=== PATIENT | female | born 1990 | race Caucasian/White ===

== ENCOUNTER → 2021-04-23 10:44 | Outpatient (CLI) | payer OTHER, SELFPAY ==
[2021-04-23 21:06] LABS: SARS-CoV-2 RNA PCR Positive
== END ==
PROVIDERS: PCP Family Medicine; Visit Provider Nurse Practitioner Gerontology
DX: U07.1 COVID-19 (principal)
CPT/HCPCS: C9803; U0003; U0005

== ENCOUNTER 2021-05-15 11:15 | Emergency (ER) | payer OTHER, SELFPAY ==
--- NOTE | 2021-05-15 11:25 | ED.EAR ---
HPI - Ear Problem General Chief complaint: Ear Stated complaint: EARACHE Time Seen by Provider: 05/15/21 11:27 Source: patient, RN notes reviewed and old records reviewed Mode of arrival: ambulatory Limitations: no limitations History of Present Illness HPI Narrative: 30-year-old female who presents to [facility] for rehabilitation care with complaints of bilateral ear pain with right ear of greater intensity. Patient had COVID around [place] with her symptoms of nasal congestion and drainage and ear discomfort lingering from that time. Patient denies any drainage from her ears denies any decreased hearing or any fevers, has crackling sensation in her ears. Patient has been taking Tylenol has not taken any kind of Zyrtec Claritin or Penelope or any type of decongestants. Patient reports some feelings of dizziness noted with position changes. MD Complaint: ear pain Location: bilateral Duration: constant Severity: moderate Relieving factors: nothing Related Data Allergies Allergy/AdvReac Type Severity Reaction Status Date / Time sulfamethizole Allergy Mild shakiness Verified 05/15/21 11:22 and high blood pressure trimethoprim Allergy Mild unknown Verified 05/15/21 11:22 sulfamethoxazole AdvReac Intermediate shakey, Verified 05/15/21 11:22 elevated pulse, high blood pressure Review of Systems Review of Systems: CONSTITUTIONAL: Denies fever, chills, or sweats. EYES: Denies visual changes, redness, or discharge. ENT: Positive for rhinorrhea, congestion, sore throat,bilateral otalgia. CARDIOVASCULAR: Denies chest pain, palpitations, or edema. RESPIRATORY: Denies cough or dyspnea. GASTROINTESTINAL: Denies abdominal pain, nausea, vomiting, or diarrhea. GENITOURINARY: Denies dysuria or hematuria. SKIN: Denies rash or itching. MUSCULOSKELETAL: Denies back pain, joint pain, or myalgia. NEUROLOGIC: Denies headache, numbness, or weakness, intermittent dizziness stated PSYCHIATRIC: Positive for history of anxiety or depression. All systems reviewed & are unremarkable except as noted in HPI and below PMFSH Past Medical History Medical History (Updated 05/15/21 @ 11:51 by Haley Rivera NP) Generalized anxiety disorder Surgical History Surgical History (Updated 05/15/21 @ 11:52 by Haley Rivera NP) History of placement of ear tubes Previous section Family History Family History Mother Hypertension Family history of elevated blood lipids Father Family history of elevated blood lipids Grandparent Cerebrovascular accident Family history of lung cancer Social History Social History Social History: Smoking status: Never smoker Second hand tobacco smoke exposure: No Alcohol intake: current Drinks per week: 2 Substance use: never Substance use type: does not use Gender identity (if verbalized by the patient): Female Sexual Orientation (if Verbalized by the Patient): Straight or Heterosexual Comments At time of signature, agree with nursing past medical, surgical, social and family history. There is no relevant family history pertinent to the presenting complaint Exam Narrative: GENERAL: Well-appearing, well-nourished, and in no acute distress. HEAD: Normocephalic, atraumatic. EYES: PERRLA and EOMI. ENT: Nares red with some redness of membranes, clear rhinorrhea no epistaxis. Mucous membranes moist.TM's normal with dull light reflex, throat red with no lesions or exudates or tonsil enlargement. post nasal darainage noted to back of throat. NECK: Supple.no lymphadenopathy CHEST: Clear to auscultation. No respiratory distress. SAO2 100% on room air HEART: Regular rate and rhythm. No murmur heard. Normal peripheral pulses. ABDOMEN: Soft, nontender, nondistended, normal active bowel sounds. EXTREMITIES: Normal range of motion. No edema. SKIN
[2021-05-15 11:26] VITALS: BP 128/69; PULSE 94; RESP 16; TEMP 36.5; O2SAT 100
== END 2021-05-15 11:47 | disposition home or self-care (01) ==
PROVIDERS: Emergency Provider Registered Nurse; PCP Family Medicine
DX: H69.93 Unspecified Eustachian tube disorder, bilateral (principal); J06.9 Acute upper respiratory infection, unspecified; F41.1 Generalized anxiety disorder; Z86.16 Personal history of COVID-19
CPT/HCPCS: 99213; G0463

== ENCOUNTER 2022-05-21 11:22 | Emergency (ER) | payer OTHER, SELFPAY ==
[2022-05-21] VITALS (16 sets, daily range): BP systolic 105–121; BP diastolic 75–92; PULSE 71–114; RESP 15–23; TEMP 36.5; O2SAT 92–100
--- NOTE | ~2022-05-21 | XR_ITS ---
Clinical Indication: Chest pain PA and lateral views of the chest: Comparison: None Findings: The lungs are clear, without evidence of focal consolidation or pleural effusion. Cardiome diastinal silhouette is within normal limits. Bones and soft tissues are unremarkable. Impression: Normal chest. Reviewed, dictated and finalized at location . [employer] Impression: Normal chest.
--- NOTE | ~2022-05-21 | CT_ITS ---
EXAMINATION: CTA chest PE protocol DATE: 05/21/2022 13:52 INDICATION: Chest pain and dyspnea TECHNIQUE: Computed tomography (CT) pulmonary angiogram of the chest was performed with 100 mL Omnipa que-350 intravenous contrast. Additional 3D reconstructions utilizing coronal maximum intensity proje ction (MIP) were performed. Automated exposure control and iterative reconstruction technique were em ployed. The dose-length product was 291.55 mGy-cm. COMPARISON: None FINDINGS: Excellent contrast opacification of the pulmonary arteries. There is mild streak artifact from dense contrast in the superior vena cava and right atrium. No significant motion artifact yielding diagnost ic quality study which demonstrates no pulmonary embolism. No pneumonia, pulmonary edema or other pul monary infiltrates. Calcified nodules in the bilateral lower lobes and calcified left hilar lymph nod es consistent with old granulomatous disease. No pleural effusion. Heart size is normal. No pericardi al effusion. Thoracic aorta is normal in caliber with no dissection. No pathologically enlarged thora cic lymphadenopathy. Visualized upper abdomen and bones are unremarkable. IMPRESSION: 1. No pulmonary embolism or other acute cardiopulmonary disease. Reviewed, dictated and finalized at location [facility]. [facility]
--- NOTE | 2022-05-21 11:40 | ECG_ITS ---
Measurements Intervals [place] Rate: 103 P: 68 IN: 131 QRS: 45 QRSD: 81 T: 28 QT: 343 QTc: 449 Interpretive Statements SINUS TACHYCARDIA BORDERLINE ST-T WAVE ABNORMALITY- ANTERIOR LEADS BASELINE ARTIFACT- V4-V5 BORDERLINE ECG NO PREVIOUS ECG AVAILABLE FOR COMPARISON Electronically Signed On 05-21-2022 11:58:52 [employer]EC[employer]IVE [employer] DEVELOPER by Bernardino Dickens D.O.
[2022-05-21 12:18] LABS: Alanine Aminotransferase 19 U/L (6-35); Albumin Level 4.5 g/dL (3.5-5.1); Alkaline Phosphatase 94 U/L (38-126); Anion Gap 9 mmol/L (8-16); Aspartate Amino Transferase 23 U/L (14-36); Basophils Percent Auto 0.4 % (0.2-1.2); Bilirubin,Total 0.3 mg/dL (0.2-1.3); Blood Urea Nitrogen 8 mg/dL (7-17); Calcium 9.1 mg/dL (8.4-10.2); Carbon Dioxide 25 mmol/L (22-30); Chloride 106 mmol/L (98-107); Eosinophils Absolute Auto 0.1 K/mm3 (0-0.3); Eosinophils Percent Auto 0.9 % (0-4.4); Estimated CRCL calculation 111 ml/min; Estimated Glomerular Filt Rate > 60; Glucose 96 mg/dL (65-110); Hematocrit 45.2 % (37.0-47.0); Hemoglobin 14.2 g/dL (12.0-15.0); Immature Granulocyte Absolute 0.02 K/mm3 (0.00-0.031); Immature Granulocyte Percent A 0.2 % (0-0.5); Lipase 61 U/L (23-300); Lymphocytes Absolute Auto 1.92 K/mm3 (0.9-3.2); Lymphocytes Percent Auto 23.4 % (18.3-44.2); Mean Corpuscular HGB Conc 31.4 g/dl (32-36); Mean Corpuscular Hemoglobin 27.7 pg (26-34); Mean Corpuscular Volume 88.1 fl (80-100); Mean Platelet Volume 10.9 fl (7.4-10.4); Monocytes Absolute Auto 0.4 K/mm3 (0.1-0.6); Monocytes Percent Auto 4.7 % (2.6-8.5); Neutrophils Absolute Auto 5.8 K/mm3 (1.3-6.7); Neutrophils Percent Auto 70.4 % (45.5-73.1); Platelet Count Result 305 k/mm3 (150-375); Potassium 3.9 mmol/L (3.4-5.0); Red Blood Count 5.13 M/mm3 (4.2-5.4); Red Cell Distribution Width 13.1 % (11.5-14.5); Sodium 140 mmol/L (137-145); White Blood Count 8.2 K/mm3 (4.5-10.0)
[2022-05-21 12:25] LABS: INR 1.1; Prothrombin Time 13.3 Seconds (11.1-14.7)
[2022-05-21 12:30] LABS: Troponin I < 0.012 ng/mL (0.000-0.034)
--- NOTE | 2022-05-21 12:47 | ED.CHESTPAIN ---
HPI - Chest Pain General Chief Complaint: Chest Pain Stated Complaint: L shoulder/chest pain Time Seen by Provider: 05/21/22 11:40 Source: RN notes reviewed History of Present Illness HPI narrative: Patient presents emergency department from home for chest pain. Patient states that this morning she woke with a tightness in her left posterior shoulder and upper back which she states is normal for her states that she was trying to work it out with a tennis ball began to experience pain in the left upper chest that did wrap around from her left back and her left front states that the pain has been worse with deep inspiration and movement of her arm states that since she is been in the emergency department the pain has improved and she now only has pain when she takes a deep breath but has no other pain she denies any fevers or chills she denies any shortness of breath she denies any abdominal pain nausea or vomiting denies any previous cardiac history Related Data Allergies Allergy/AdvReac Type Severity Reaction Status Date / Time sulfamethizole Allergy Mild shakiness Verified 04/07/22 07:56 and high blood pressure trimethoprim Allergy Mild unknown Verified 04/07/22 07:56 sulfamethoxazole AdvReac Intermediate shakey, Verified 04/07/22 07:56 elevated pulse, high blood pressure Review of Systems Review of Systems: Gen.: Denies fevers or chills ENT: Denies congestion Respiratory: Denies shortness of breath or cough CV: See HPI GI: Denies abdominal pain nausea, emesis or diarrhea Musculoskeletal: Denies back pain or muscle pain Neuro: Denies numbness, tingling, weakness or focal weakness Skin: Denies rash Except as documented, all other systems reviewed and negative [facility] Past Medical History Medical History Generalized anxiety disorder Surgical History Surgical History History of placement of ear tubes Previous section Family History Family History Mother Hypertension Family history of elevated blood lipids Father Family history of elevated blood lipids Grandparent Cerebrovascular accident Family history of lung cancer Social History Social History Social History: Smoking status: Never smoker Second hand tobacco smoke exposure: No Alcohol intake: current Drinks per week: 2 Substance use: never Substance use type: does not use Living arrangements: with family Occupation/Education: occupation Gender identity (if verbalized by the patient): Female Sexual Orientation (if Verbalized by the Patient): Straight or Heterosexual Exam Narrative: APPEARANCE: No acute distress, nontoxic, resting in bed EYES: EOMI HEENT: Normocephalic, atraumatic, OMM RESPIRATORY: No respiratory distress Clear to auscultation bilaterally with no rhonchi wheezing or rales. CARDIOVASCULAR: Regular rate and rhythm without murmurs rubs or gallops. Chest: Nontender to palpation pain with deep inspiration only that resolves with holding breath ABDOMINAL: Soft, nontender, nondistended, no rebound or guarding MUSCULOSKELETAl: Moves all extremities. No clubbing, cyanosis or edema. NEURO: Awake and alert. Following commands, speech normal, no focal deficits SKIN:: Warm, dry. No rashes lesions or abrasions PSYCHIATRIC: Normal affect/mood, Course Course Emergency Course: Discussed with patient results of workup and diagnosis. Discussed need for follow-up with primary care, proper use of medication, and reasons to return to the emergency department. Patient understands and agrees to current treatment plan Vital Signs Vital signs: Vital Signs Pulse Rate 77 05/21/22 11:37 Respiratory Rate 21 H 05/21/22 11:37 Temperature 97.7 F 05/21
[2022-05-21] MEDS: KETOROLAC 30 MG/ML VIAL (*BKC) IV PUSH (12:54)
[2022-05-21 13:15] LABS: D Dimer 0.61 ug/mL (<0.48)
[2022-05-21 15:18] LABS: Troponin I < 0.012 ng/mL (0.000-0.034)
== END 2022-05-21 16:17 | disposition home or self-care (01) ==
PROVIDERS: Emergency Provider Emergency Medicine; PCP Family Medicine
DX: R07.89 Other chest pain (principal); R00.0 Tachycardia, unspecified; R94.31 Abnormal electrocardiogram [ECG] [EKG]
CPT/HCPCS: 36415; 71046; 71275; 80053; 81025; 83690; 84484; 85025; 85380; 85610; 85730; 93005; 96374; 99284; J1885; Q9967

== ENCOUNTER 2023-12-31 08:01 | Emergency (ER) | payer OTHER, SELFPAY ==
[2023-12-31 08:05] VITALS: BP 129/82; PULSE 111; RESP 12; TEMP 36.4; O2SAT 100
--- NOTE | 2023-12-31 08:27 | ED.NAVMDI ---
HPI - Nausea/Vomiting/Diarrhea General Chief complaint: Nausea/Vomiting/Diarrhea Stated complaint: N/V, blood in stool Time Seen by Provider: 12/31/23 08:05 History of Present Illness HPI Narrative: 33-year-old otherwise healthy female presenting to the emergency depart with a chief complaint of nausea, vomiting and 1 episode of bright red streaks of blood in her stool. Patient states she was otherwise in her normal state of health but for last 24 hours she has been having intractable nausea and vomiting with inability to tolerate p.o. intake. She states she was recently titrated on Wegovy with increased dose which she attributes her symptoms to. Denies any other medication changes or recent illnesses. No recent antibiotic use. No injuries or trauma. Denies any chance of . No chest pain, shortness a breath, abdominal pain, back pain, fever, chills, dysuria. No pain associated. Related Data Allergies Allergy/AdvReac Type Severity Reaction Status Date / Time sulfamethizole Allergy Mild shakiness Verified 12/31/23 08:11 and high blood pressure trimethoprim Allergy Mild unknown Verified 12/31/23 08:11 sulfamethoxazole AdvReac Intermediate shakey, Verified 12/31/23 08:11 elevated pulse, high blood pressure Review of Systems Review of Systems: As reviewed above in HPI [facility] Past Medical History Medical History Generalized anxiety disorder Surgical History Surgical History History of placement of ear tubes Previous section Family History Family History Mother Hypertension Family history of elevated blood lipids Father Family history of elevated blood lipids Grandparent Cerebrovascular accident Family history of lung cancer Social History Social History Social History: Smoking status: Never smoker Second hand tobacco smoke exposure: No Alcohol intake: current Drinks per week: 2 Substance use: never Substance use type: does not use Living arrangements: with family Occupation/Education: occupation Gender identity (if verbalized by the patient): Female Sexual Orientation (if Verbalized by the Patient): Straight or Heterosexual Exam Narrative: GENERAL: Retching with no apparent distress. Emesis basin at bedside with clear fluid HEAD: [Normocephalic, atraumatic.] EYES: [PERRLA and EOMI.] ENT: Nares clear, no rhinorrhea or epistaxis. Mucous membranes dry NECK: Supple. CHEST: [Clear to auscultation. No respiratory distress.] HEART: [Regular rate and rhythm]. No murmur heard. [Normal peripheral pulses.] ABDOMEN: [Soft, nondistended], [nontender], [No rigidity or guarding] EXTREMITIES: Normal range of motion. [No edema.] SKIN: Warm, dry, no rash. NEURO: [No focal deficits]. Alert and oriented [x3.] PSYCH: [Normal mood and affect.] Course Vital Signs Vital signs: Vital Signs Temperature 36.4 C L 12/31/23 08:05 Pulse Rate 111 H 12/31/23 08:05 Respiratory Rate 12 12/31/23 08:05 Blood Pressure 129/82 12/31/23 08:05 Pulse Oximetry 100 12/31/23 08:05 Oxygen Delivery Room Air 12/31/23 08:05 Temperature 36.4 C L 12/31/23 08:05 Pulse Rate 84 12/31/23 09:39 Respiratory Rate 18 12/31/23 09:39 Blood Pressure 108/69 12/31/23 09:39 Pulse Oximetry 100 12/31/23 09:39 Oxygen Delivery Room Air 12/31/23 08:05 MDM - Nausea/Vomiting/Diarrhea MDM Narrative Medical decision making narrative: This is a 33-year-old female presenting with nausea and vomiting as well as 1 episode of red streaks in her stool when wiping. She was otherwise in her normal state of health and only recent changes in her medications were increasing her Weg
[2023-12-31] MEDS: LACTATED RINGERS 1,000 ML 999 ML IV CONT (08:28)
[2023-12-31] MEDS: diphenhydrAMINE HCl INJ 50 MG/ML VIAL 25 MG IV PUSH (08:29)
[2023-12-31 08:30] LABS: Basophils Absolute Auto 0.1 K/mm3 (0.0-0.1); Basophils Percent Auto 0.5 % (0.2-1.2); Eosinophils Percent Auto 0.2 % (0-4.4); Hematocrit 44.6 % (37.0-47.0); Hemoglobin 14.7 g/dL (12.0-15.0); Immature Granulocyte Absolute 0.03 K/mm3 (0.00-0.031); Immature Granulocyte Percent A 0.3 % (0-0.5); Lymphocytes Absolute Auto 0.98 K/mm3 (0.9-3.2); Lymphocytes Percent Auto 10.6 % (18.3-44.2); Mean Corpuscular Hemoglobin 28.1 pg (26-34); Mean Corpuscular Volume 85.3 fl (80-100); Mean Platelet Volume 10.8 fl (7.4-10.4); Monocytes Absolute Auto 0.4 K/mm3 (0.1-0.6); Monocytes Percent Auto 3.8 % (2.6-8.5); Neutrophils Absolute Auto 7.8 K/mm3 (1.3-6.7); Neutrophils Percent Auto 84.6 % (45.5-73.1); Platelet Count Result 297 k/mm3 (150-375); Red Blood Count 5.23 M/mm3 (4.2-5.4); Red Cell Distribution Width 13.3 % (11.5-14.5); White Blood Count 9.3 K/mm3 (4.5-10.0)
[2023-12-31] MEDS: METOCLOPRAMIDE HCL INJ 10 MG/2 ML VIAL IV PUSH (08:30)
[2023-12-31 08:32] VITALS: BP 129/92; PULSE 92; RESP 19; O2SAT 100
[2023-12-31 08:52] LABS: Alanine Aminotransferase 13 U/L (6-35); Albumin Level 4.8 g/dL (3.5-5.1); Alkaline Phosphatase 80 U/L (38-126); Anion Gap 13 mmol/L (4-12); Aspartate Amino Transferase 25 U/L (14-36); Bilirubin,Total 0.4 mg/dL (0.2-1.3); Blood Urea Nitrogen 8 mg/dL (7-17); Calcium 9.2 mg/dL (8.4-10.2); Carbon Dioxide 24 mmol/L (22-30); Chloride 102 mmol/L (98-107); Estimated CRCL calculation 77 ml/min; Estimated Glomerular Filt Rate > 60; Glucose 101 mg/dL (65-110); Lipase 97 U/L (23-300); Potassium 3.7 mmol/L (3.4-5.0); Sodium 139 mmol/L (137-145)
[2023-12-31 09:39] VITALS: BP 108/69; PULSE 84; RESP 18; O2SAT 100
[2023-12-31 09:48] LABS: BEDSIDEPREGUCG Negative
[2023-12-31 09:56] LABS: Add Urine Microscopic? YES; Appearance Urine Clear (Clear); Bacteria Urine 1+ /hpf; Bilirubin Urine Negative (Negative); Blood Urine 2+ (Negative); Color Urine Yellow (Yellow); Glucose Urine UA Negative (Negative); Ketones Urine 1+ mg/dL (Negative); Leukocyte Esterase Ur Trace LEU/UL (Negative); Nitrate Urine Negative (Negative); Non Pathogenic Casts 0-2; Protein Urine Negative (Negative); Squamous Epithelial Cell Urine Occasional /hpf (Few); WBC Urine 0-5 /hpf (0-3); pH Urine 6.5 (5.0-9.0)
[2023-12-31 12:40] VITALS: BP 101/80; PULSE 95; RESP 16; O2SAT 100
== END 2023-12-31 12:40 | disposition home or self-care (01) ==
PROVIDERS: Emergency Provider Student in an Organized Health Care Education/Training Program
DX: R11.2 Nausea with vomiting, unspecified (principal); F41.9 Anxiety disorder, unspecified
CPT/HCPCS: 36415; 80053; 81001; 81025; 83690; 85025; 96361; 96374; 96375; 99284; J1200; J2765; J7120

== ENCOUNTER 2024-01-02 16:00 | Emergency (ER) | payer OTHER, SELFPAY ==
--- NOTE | ~2024-01-02 | CT_ITS ---
EXAMINATION: CT abdomen pelvis w con DATE: 01/02/2024 20:50 INDICATION: Diffuse abdominal pain, nausea and vomiting TECHNIQUE: Computed tomography (CT) of the abdomen and pelvis was performed with 100 CC Omnipaque 350 intravenous contrast. Automated exposure control and iterative reconstruction technique were employe d. Exam dose: 391.43 mGy-cm total exam DLP. COMPARISON: 10/28/2017 CT abdomen pelvis FINDINGS: Calcified pulmonary granuloma, posterior basilar left lower lobe in the costophrenic gutter . The lung bases are clear of infiltrate or consolidation. Normal heart size. No pericardial or pleural effusion. Small sliding hiatal hernia. No hepatic, splenic or pancreatic space-occupying mass lesion. The gallbladder appears unremarkable. No bile duct or pancreatic duct dilatation. Normal morphology of the adrenal glands. No renal mass lesion or urinary tract calculus or hydroureteronephrosis is detected. The urinary bladder, uterus and adnexal areas are unremarkable. Normal caliber of the abdominal aorta. No intraperitoneal or retroperitoneal or pelvic mass lesion or adenopathy or ascites. Normal appendix. There are distended small bowel and nondilated segments with small bowel levels of t he upper and midabdomen but no apparent transition point, bowel wall thickening or bowel obstruction. Consider enteritis. No intraperitoneal free air. Small fat-containing umbilical hernia. Included skeletal structures are unremarkable. IMPRESSION: Small bowel air-fluid levels without apparent obstruction; consider enteritis Normal appendix Small sliding hiatal hernia Reviewed, dictated and finalized at [facility]. Reviewed, dictated and finalized at location [facility]. IMPRESSION: Small bowel air-fluid levels without apparent obstruction; conside r enteritis Normal appendix Small sliding hiatal hernia
[2024-01-02 16:01] VITALS: BP 128/84; PULSE 98; RESP 20; TEMP 36.3; O2SAT 100
[2024-01-02 18:00] VITALS: BP 121/85; PULSE 93; RESP 16; O2SAT 100
[2024-01-02 18:24] LABS: BEDSIDEPREGUCG Negative (Negative)
[2024-01-02 18:26] LABS: Basophils Percent Auto 0.4 % (0.2-1.2); Eosinophils Absolute Auto 0.1 K/mm3 (0-0.3); Eosinophils Percent Auto 0.5 % (0-4.4); Hematocrit 43.5 % (37.0-47.0); Hemoglobin 14.2 g/dL (12.0-15.0); Immature Granulocyte Absolute 0.04 K/mm3 (0.00-0.031); Immature Granulocyte Percent A 0.4 % (0-0.5); Lymphocytes Absolute Auto 1.93 K/mm3 (0.9-3.2); Lymphocytes Percent Auto 20.3 % (18.3-44.2); Mean Corpuscular HGB Conc 32.6 g/dl (32-36); Mean Corpuscular Hemoglobin 28.2 pg (26-34); Mean Corpuscular Volume 86.5 fl (80-100); Mean Platelet Volume 11.3 fl (7.4-10.4); Monocytes Absolute Auto 0.7 K/mm3 (0.1-0.6); Neutrophils Absolute Auto 6.8 K/mm3 (1.3-6.7); Neutrophils Percent Auto 71.4 % (45.5-73.1); Platelet Count Result 298 k/mm3 (150-375); Red Blood Count 5.03 M/mm3 (4.2-5.4); Red Cell Distribution Width 13.6 % (11.5-14.5); White Blood Count 9.5 K/mm3 (4.5-10.0)
[2024-01-02 18:35] LABS: Lactic Acid Reflex 1.2 mmol/L (0.7-2.0)
[2024-01-02 18:36] LABS: Magnesium 2.2 mg/dL (1.6-2.3)
[2024-01-02 18:44] LABS: Alanine Aminotransferase 17 U/L (6-35); Albumin Level 4.8 g/dL (3.5-5.1); Alkaline Phosphatase 74 U/L (38-126); Anion Gap 12 mmol/L (4-12); Aspartate Amino Transferase 30 U/L (14-36); Bilirubin,Total 0.5 mg/dL (0.2-1.3); Blood Urea Nitrogen 4 mg/dL (7-17); Calcium 9.2 mg/dL (8.4-10.2); Carbon Dioxide 25 mmol/L (22-30); Chloride 101 mmol/L (98-107); Estimated CRCL calculation 90 ml/min; Estimated Glomerular Filt Rate > 60; Glucose 96 mg/dL (65-110); Lipase 89 U/L (23-300); Sodium 138 mmol/L (137-145)
[2024-01-02 18:46] LABS: Amphetamine Screen Urine Negative (Negative); Barbiturate Screen Urine Negative (Negative); Benzodiazepines Screen Urine Positive (Negative); Cannabinoid Screen Urine Negative (Negative); Cocaine Screen Urine Negative (Negative); Methadone Screen Urine Negative (Negative); Opiate Screen Urine Negative (Negative); Phencyclidine Screen Urine Negative (Negative)
[2024-01-02 18:53] LABS: Add Urine Microscopic? YES; Appearance Urine Clear (Clear); Bacteria Urine None Seen /hpf; Bilirubin Urine Negative (Negative); Blood Urine 2+ (Negative); Color Urine Yellow (Yellow); Glucose Urine UA Negative (Negative); Ketones Urine 3+ mg/dL (Negative); Leukocyte Esterase Ur Negative LEU/UL (Negative); Nitrate Urine Negative (Negative); Non Pathogenic Casts 0-2; Protein Urine Negative (Negative); RBC Urine 0-2 /hpf (0-2); Specific Grav Ur 1.019 (1.001-1.035); Squamous Epithelial Cell Urine None Seen /hpf (Few); WBC Urine 0-5 /hpf (0-3)
[2024-01-02 19:02] LABS: Influenza A QL RT-PCR Negative (Negative); Influenza B QL RT-PCR Negative (Negative); RSV RNA, RT-PCR Negative (Negative); SARS-CoV-2 RNA PCR Negative (Negative)
[2024-01-02] MEDS: FAMOTIDINE 20 MG/2 ML VIAL IV PUSH (20:05)
[2024-01-02] MEDS: SODIUM CHLORIDE 0.9% IV 1,000 ML 999 ML IV CONT ×2 (20:05→21:23)
[2024-01-02] MEDS: ONDANSETRON INJ 4 MG/2 ML VIAL IV PUSH (20:05)
[2024-01-02 20:16] VITALS: BP 117/77; PULSE 85; RESP 18; O2SAT 98
--- NOTE | 2024-01-02 21:12 | ED.NAVMDI ---
HPI - Nausea/Vomiting/Diarrhea General Chief complaint: Nausea/Vomiting/Diarrhea Stated complaint: N/V (was here on Wednesday) Time Seen by Provider: 01/02/24 17:58 Source: patient and old records reviewed Mode of arrival: ambulatory Limitations: no limitations History of Present Illness HPI Narrative: Patient is a 33-year-old female who presents the ED with report of nausea and vomiting. Patient reports she has been sick since with persistent nausea vomiting. She was seen here in the ED on Wednesday, given antiemetics and fluids and felt better. She then took a trip to [place] this weekend and returned home today with persistent symptoms. States she has had a hard time keeping any food or drink down. Reports diffuse abdominal cramping, denies significant pain. Denies diarrhea, constipation, fevers. Patient is currently on wegovy for weight loss and had her dose increased last prior to when sx's began. Related Data Allergies Allergy/AdvReac Type Severity Reaction Status Date / Time sulfamethizole Allergy Mild shakiness Verified 12/31/23 08:11 and high blood pressure trimethoprim Allergy Mild unknown Verified 12/31/23 08:11 sulfamethoxazole AdvReac Intermediate shakey, Verified 12/31/23 08:11 elevated pulse, high blood pressure Review of Systems Review of Systems: All systems reviewed & are unremarkable except as noted in HPI. All systems reviewed & are unremarkable except as noted in HPI and below PMFSH Past Medical History Medical History Generalized anxiety disorder Surgical History Surgical History History of placement of ear tubes Previous section Family History Family History Mother Hypertension Family history of elevated blood lipids Father Family history of elevated blood lipids Grandparent Cerebrovascular accident Family history of lung cancer Social History Social History Social History: Smoking status: Never smoker Second hand tobacco smoke exposure: No Alcohol intake: current Drinks per week: 2 Substance use: never Substance use type: does not use Living arrangements: with family Occupation/Education: occupation Gender identity (if verbalized by the patient): Female Sexual Orientation (if Verbalized by the Patient): Straight or Heterosexual Exam Narrative: GENERAL: Well appearing, borderline obese with BMI of 30.3, non-toxic, in no acute distress. HEAD: Normocephalic, atraumatic. RESPIRATORY: Airway patent, respirations nonlabored. Clear to auscultation bilaterally, no rales, rhonchi, wheezing. CARDIOVASCULAR: Regular rate and rhythm without murmurs, rubs, or gallops. ABDOMINAL: Soft, mild diffuse tenderness, nondistended. Normoactive BS. MUSCULOSKELETAL: Moves all extremities. No gross deformities. SKIN: Warm, dry, normal color. NEURO: A&O X3. Speech clear. PSYCHIATRIC: Appropriate mood and affect. Normal interaction. Course Vital Signs Vital signs: Vital Signs Temperature 97.3 F L 01/02/24 16:01 Pulse Rate 98 01/02/24 16:01 Respiratory Rate 20 01/02/24 16:01 Blood Pressure 128/84 01/02/24 16:01 Pulse Oximetry 100 01/02/24 16:01 Oxygen Delivery Room Air 01/02/24 16:01 Temperature 97.3 F L 01/02/24 16:01 Pulse Rate 85 01/02/24 20:16 Respiratory Rate 18 01/02/24 20:16 Blood Pressure 117/77 01/02/24 20:16 Pulse Oximetry 98 01/02/24 20:16 Oxygen Delivery Room Air 01/02/24 16:01 MDM - Nausea/Vomiting/Diarrhea MDM Narrative Medical decision making narrative: patient presented to ED with persistent nausea, vomiting. Recently seen in the ED here for similar symptoms. Vital signs are
--- NOTE | 2024-01-02 22:13 | PC.NURSE ---
Pt able to drink bottle of Gatorade and eat bob crackers without nausea. Feels good enough to go home.
[2024-01-02 22:40] VITALS: BP 125/85; PULSE 85; RESP 16; O2SAT 99
== END 2024-01-02 22:47 | disposition home or self-care (01) ==
PROVIDERS: Emergency Provider Physician Assistant; PCP Physician Assistant
DX: K52.9 Noninfective gastroenteritis and colitis, unspecified (principal); R11.2 Nausea with vomiting, unspecified; Z20.822 Contact with and (suspected) exposure to COVID-19; F41.9 Anxiety disorder, unspecified
CPT/HCPCS: 36415; 74177; 80053; 80307; 81001; 81025; 83605; 83690; 83735; 85025; 87637; 96361; 96374; 96375; 99284; J2405; J7030; Q9967